=== PATIENT | male | born 2000 ===

== ENCOUNTER 2021-06-14 11:58 | Outpatient (REF) | payer OTHER, SELFPAY ==
[2021-06-14 12:32] LABS: COVID-19 Test Negative (Negative)
== END 2021-06-14 11:59 | disposition home or self-care (01) ==
LOC: HO.LAB 11:58
PROVIDERS: Visit Provider Internal Medicine
DX: Z20.822 Contact with and (suspected) exposure to COVID-19 (principal)
CPT/HCPCS: 87635; C9803

== ENCOUNTER 2021-08-03 16:08 | Emergency (ER) | payer OTHER, SELFPAY ==
--- NOTE | 2021-08-03 | ECG_ITS ---
Test Reason : CP Blood Pressure : / mmHG Vent. Rate : 097 BPM Atrial Rate : 097 BPM P-R Int : 130 ms QRS Dur : 080 ms QT Int : 326 ms P-R-T Axes : 074 093 017 degrees QTc Int : 414 ms Normal sinus rhythm Right atrial enlargement Rightward axis Borderline ECG No previous ECGs available Referred By: Generic ED Physician Electronically Signed By:GRANT NEIL MD
[2021-08-03 16:11] VITALS: BP 136/49; PULSE 100; RESP 18; TEMP 37.2; O2SAT 96; BMI 24.2
[2021-08-03 17:20] LABS: COVID-19 Test Negative (Negative)
[2021-08-03 17:21] LABS: IDNOW Serial# 55D5AD1C; Influenza A Positive (Negative); Influenza B2 Negative (Negative)
--- NOTE | 2021-08-03 17:49 | ED.URI ---
HPI - URI/Sore Throat General Chief Complaint: Upper Respiratory Symptoms Stated Complaint: body aches/chest pain/headaches Time Seen by Provider: 08/03/21 17:42 Source: patient Mode of arrival: ambulatory Limitations: no limitations History of Present Illness MD elicited complaint: fever, cough, sore throat, rhinorrhea and nasal congestion Onset (ago): day(s) (2) Consistency: constant and progressively worsening Severity: mild Description of mucous: clear and watery Able to tolerate fluids by mouth: Yes Exacerbating factors: swallowing and deep breaths Relieving factors: nothing Context: sick contacts and other(s) with similar symptoms (at work) Associated symptoms: fever, chills, myalgias, headache, rhinorrhea, nasal congestion, sore throat and cough Treatments prior to arrival: none Related Data Previous Rx's Medication Instructions Recorded acetaminophen 500 mg tablet 1,000 mg PO QID PRN #14 tab 08/03/21 (Tylenol Extra Strength) albuterol sulfate 90 mcg/actuation 1 inh INHALATION QID PRN #8.5 g 08/03/21 aerosol inhaler codeine 10 mg-guaifenesin 100 mg/5 5 ml PO Q6H PRN #120 ml 08/03/21 mL oral liquid (Guaifenesin AC) ibuprofen 800 mg tablet 800 mg PO Q8H PRN #14 tab 08/03/21 oseltamivir 75 mg capsule (Tamiflu) 75 mg PO BID 5 Days #10 cap 08/03/21 Allergies Allergy/AdvReac Type Severity Reaction Status Date / Time No Known Allergies Allergy Unverified 12/12/19 19:52 [No Known Allergies*] Review of Systems Review of Systems: Constitutional : + Fevers/ chills/fatigue/malaise, No Weight loss, No Night Sweats ENT/Mouth : + sore throat /nasal congestion/ rhinorrhea, No Hearing loss, No Ear Pain, No Sinus Pain, No Hoarseness, No Swallowing Difficulty Eyes: No Eye Pain, No Swelling, No Redness, No Foreign Body, No Discharge, No Vision Changes Cardiovascular : No Chest Pain, No SOB, No Dyspnea on Exertion, No Orthopnea, No Edema, No Palpitations Respiratory : + Cough c chest tightness, + Sputum, No Wheezing, No Smoke Exposure, No Dyspnea Gastrointestinal : No Nausea, No Vomiting, No Diarrhea, No Constipation, No abdominal Pain, No Hematochezia, No Melena Genitourinary : no irregular bleeding, No Dysuria, No Urinary Frequency, No Hematuria, No Urinary Incontinence, No Urgency, No Flank Pain, No Urinary Flow Changes, No Hesitancy Musculoskeletal : No joint pain, + Myalgias, No Joint Swelling Skin : No Skin Lesions, No rash Neuro : No Weakness, No Numbness, No Paresthesias, No Loss of Consciousness, No Dizziness, No Headache Psych : No Anxiety/Panic, No Depression, No SI/HI/AH/VH, No Social Issues, Heme/Lymph: No Bruising, No Bleeding,No Lymphadenopathy Endocrine : No Polyuria, No Polydipsia, No Temperature Intolerance Yes all other systems are reviewed and are negative [facility] Past Medical History Attestation statement: The following information was validated with the patient. Medical History No known health problems Surgical History No history of previous surgery Social History Social History Advance Directives: No Advance Directives Information Provided: No Physical Exam Vital Signs: Vital Signs: Last Vital Signs Temp 98.9 F 08/03/21 16:11 Pulse 100 08/03/21 16:11 Resp 18 08/03/21 16:11 BP 136/49 L 08/03/21 16:11 Pulse Ox 96 08/03/21 16:11 BMI result Body Mass Index 24.2 vital signs have been reviewed as normal and appeared to be correct. Blood pressure 136/49. Heart rate normal. Respiration rate normal. Temperature normal. Oxygen saturation normal. Appearance: Alert. Oriented X3. No acute distress. Head: Normal external exam. Normocephalic. Atraumatic. Eyes: PERRLA. EOMI. Conjunctiva and sclera normal. Eyelids normal. ENT: EAC normal. TM's Normal. Pharynx normal. Uvula midline. Moist mucous membranes. No lesions/ulcerations or masses noted on the tongue. Normal voice. No trismus noted. No drooling noted. No muffled voice noted. Neck: Normal inspection. Neck supple. FROM. No adenopathy. Thyroid Normal. No meningeal signs. No neck mass noted. CVS: Normal heart rate and rhythm. Heart sound normal. Pulses normal throughout. No murmurs/rales/gallops. Respiratory: No respiratory distress. Painless inspiration. Breath sounds normal. No wheezes/rales/rhonchi noted. Chest nontender. No accessory muscle usage noted or decreased air movement noted. No signs of trauma. Abdomen: Soft and nontender. Bowel sounds normal in all 4 quadrants. No distention noted. No organomegaly noted. No visible injury noted. Back: No CVA tenderness. Full range of motion noted. Nontender. No signs of trauma. Patient neuro intact bilaterally and distally on all 4 extremities. Patient's reflexes intact bilaterally and distally on all 4 extremities. No rashes/lesion/induration/fluctuance or signs of infection noted. Skin: Skin warm and dry. Normal skin color. Normal skin turgor. No rashes/lesions/lacerations noted. Extremities: No lower extremity edema. No calf tenderness is noted. Extremities exhibit normal range of motion and nontender. Neuro: Oriented X 3. No motor deficit. No sensory deficit. Reflexes normal. Normal steady gait. No focal neuro deficits noted. CN's II-XII intact bilaterally? Vascular: + radial pulses/+ 2 distal pedal pulses/+2 dorsalis pedis b/l. Normal cap refill. No cyanosis noted to upper extremity nails and lower extremity toes nails. Course Course Course Narrative: 21-year-old male presenting to the ED with complaints of subjective fevers, chills, fatigue, malaise, body aches, sore throat, nasal congestion / rhinorrhea with intermittent productive versus dry cough since yesterday worse today. Reports that he is vaccinated to COVID although not vaccinated to the flu. He reports that his bosses son from [employer] recently came out positive for COVID therefore he was concerned for COVID. He denies any other sick contacts that he is aware of. He is positive for the flu. Otherwise on exam he is alert and oriented x3. Not in any acute distress. Neck is soft nontender and supple with full range of motion. Lungs clear to auscultation. Abdomen is soft and nontender. No lower extremity edema or calf tenderness noted. EKG is normal sinus rhythm no acute ischemic change are noted. no imaging indicated at this time. Will DC home with Tamiflu and symptomatic treatment instructions return if any new or worsening symptoms to self isolate and follow up with primary care provider. Patient understands agrees with this plan. MDM - URI/Sore Throat Medical Records Attestation: I reviewed the patient's medical records. Lab Data Attestation: I reviewed the patient's lab results. Labs: Lab Results 08/03/21 08/03/21 08/03/21 Range/Units 16:17 16:17 17:51 COVID-19 (GLENDA) Negative (Negative) COVID-19 Clin Com See Note Influenza Type A (JALIL) Positive A (Negative) Influenza Type B (JALIL) Negative (Negative) Influenza A & B Note See Note S. pyogenes GrpA JALIL Negative (Negative) Discharge Plan Discharge Clinical Impression: Influenza A Patient Disposition: Home, Self-Care Instructions: Influenza (ED), Flu Shot (Vaccine) for Adults (ED), Droplet Precautions (ED) Prescriptions: New oseltamivir [Tamiflu] 75 mg capsule 75 mg PO BID 5 Days Qty: 10 0RF albuterol sulfate 90 mcg/actuation HFA aerosol inhaler 1 inh inhalation QID PRN (Reason: shortness of breath or wheezing) Qty: 8.5 0RF codeine-guaifenesin [Guaifenesin AC] 10-100 mg/5 mL liquid 5 ml PO Q6H PRN (Reason: cold symptoms) Qty: 120 0RF ibuprofen 800 mg tablet 800 mg PO Q8H PRN (Reason: pain) Qty: 14 0RF acetaminophen [Tylenol Extra Strength] 500 mg tablet 1,000 mg PO QID PRN (Reason: fever or pain) Qty: 14 0RF Referrals: Physician,Unknown J [Primary Care Provider] - 1 week (your pcp) Stand Alone Forms: Work/School Release Print Language: Andorran
[2021-08-03 18:07] LABS: Strep A Nucleic Acid Negative (Negative)
== END 2021-08-03 18:50 | disposition home or self-care (01) ==
LOC: HO.ED 18:11
PROVIDERS: Physician Assistant Medical; Emergency Provider Emergency Medicine
DX: J10.1 Influenza due to other identified influenza virus with other respiratory manifestations (principal); R07.89 Other chest pain; R50.9 Fever, unspecified; M79.10 Myalgia, unspecified site; R51.9 Headache, unspecified; J34.89 Other specified disorders of nose and nasal sinuses; R05.9 Cough, unspecified; Z20.822 Contact with and (suspected) exposure to COVID-19; Z79.899 Other long term (current) drug therapy
CPT/HCPCS: 36415; 87502; 87635; 87651; 93005; 99283; 99284

== ENCOUNTER 2021-08-12 02:33 | Emergency (ER) | payer OTHER, SELFPAY ==
--- NOTE | ~2021-08-12 | XR_ITS ---
EXAMINATION: XR CHEST CLINICAL INFORMATION: Cough COMPARISON: None TECHNIQUE: Frontal view of the chest was obtained. FINDINGS: The lungs are well expanded. There is no focal consolidation, edema, or effusion. No pneumothorax. The cardiomediastinal silhouette is within normal limits. No acute osseous abnormality. XR/XR chest 1V IMPRESSION: Clear lungs.
[2021-08-12 02:53] VITALS: BP 125/52; PULSE 74; RESP 16; TEMP 36.8; O2SAT 95; BMI 28.3
[2021-08-12 03:15] LABS: COVID-19 Test Negative (Negative); IDNOW Serial# 16C4AD1C; Influenza A Negative (Negative); Influenza B2 Negative (Negative)
--- NOTE | 2021-08-12 07:03 | ED_ITS ---
HPI - URI/Sore Throat General Chief Complaint: Upper Respiratory Symptoms Stated Complaint: Cough Time Seen by Provider: 08/12/21 07:02 Source: patient and spanish interpreter Mode of arrival: ambulatory Limitations: no limitations History of Present Illness HPI Narrative: dx with flu A on 08/03 MD elicited complaint: cough and other Pertinent past history: other (flu A on 08/03 ) Onset (ago): day(s) (10) Consistency: intermittent Severity: moderate Description of mucous: clear Able to tolerate fluids by mouth: Yes Exacerbating factors: exertion and deep breaths Relieving factors: nothing Context: other(s) with similar symptoms Associated symptoms: chills, nasal congestion and cough Treatments prior to arrival: none Related Data Previous Rx's Medication Instructions Recorded acetaminophen 500 mg tablet 1,000 mg PO QID PRN #14 tab 08/03/21 (Tylenol Extra Strength) albuterol sulfate 90 mcg/actuation 1 inh INHALATION QID PRN #8.5 g 08/03/21 aerosol inhaler codeine 10 mg-guaifenesin 100 mg/5 5 ml PO Q6H PRN #120 ml 08/03/21 mL oral liquid (Guaifenesin AC) ibuprofen 800 mg tablet 800 mg PO Q8H PRN #14 tab 08/03/21 oseltamivir 75 mg capsule (Tamiflu) 75 mg PO BID 5 Days #10 cap 08/03/21 azithromycin 250 mg tablet 250 mg PO DAILY 4 Days #4 tab 08/12/21 benzonatate 200 mg capsule 200 mg PO TID PRN #14 cap 08/12/21 prednisone 20 mg tablet 40 mg PO DAILY 4 Days #8 tab 08/12/21 Allergies Allergy/AdvReac Type Severity Reaction Status Date / Time No Known Allergies Allergy Verified 08/12/21 02:56 [No Known Allergies*] Review of Systems Review of Systems: Constitutional : No Fever, No Chills ENT/Mouth : No Hoarseness, pos sore throat, pos Rhinorrhea Eyes: No Redness, No Discharge, No Vision Changes Cardiovascular : No Chest Pain, positive SOB, no Dyspnea on Exertion, No Edema Respiratory : positive Cough, No Sputum, no Wheezing, Gastrointestinal : No Nausea, No Vomiting, No Diarrhea, No abdominal Pain Genitourinary : No Dysuria, No Hematuria Musculoskeletal : No joint pain, No Myalgias Skin : No rash Neuro : No Weakness, No Numbness, No Headache Psych : No anxiety, depression Heme/Lymph: No Bruising, No Bleeding Endocrine : No Polyuria, No Polydipsia All other systems reviewed and are negative [facility] Past Medical History Attestation statement: The following information was validated with the patient. Medical History No known health problems Surgical History No history of previous surgery Social History Social History (Updated 08/12/21 @ 07:29 by Nicole Schmidt DO) Patient Tobacco Use Status: Never used Tobacco Advance Directives: No Physical Exam Vital Signs: Vital Signs: Last Vital Signs Temp 98.3 F 08/12/21 02:53 Pulse 74 08/12/21 02:53 Resp 16 08/12/21 02:53 BP 125/52 L 08/12/21 02:53 Pulse Ox 95 08/12/21 02:53 BMI result Body Mass Index 28.3 Appearance: Alert. Oriented X3. No acute distress. Eyes: Pupils equal, round and reactive to light. ENT: Pharynx mild generalized erythema Neck: Normal inspection. Neck supple. CVS: Normal heart rate and rhythm. Pulses normal. Respiratory: No respiratory distress. Breath sounds normal. Dry bronchospastic cough Abdomen: Soft and nontender. Skin: Skin warm and dry. Normal skin color. Normal skin turgor. Extremities: No lower extremity edema. No calf ttp Neuro: Oriented X 3. No motor deficit. No sensory deficit. MDM - URI/Sore Throat MDM Narrative Medical decision making narrative: 21 yo male with no sig PMH here with flu A on 08/03 now with persistent dry cough that keeps him up. His job sent him in due to coughing at work. He has had bronchitis in the past. At this time viral swabs and CXR from triage are negative. Will give INH, steroids, anti tussive and zpak for bronchitis. Stable for DC. Normal O2 sats Lab Data Labs: Lab Results 08/12/21 08/12/21 Range/Units 02:53 02:53 COVID-19 (GLENDA) Negative (Negative) COVID-19 Clin Com See Note Influenza Type A (JALIL) Negative (Negative) Influenza Type B (JALIL) Negative (Negative) Influenza A & B Note See Note Discharge Plan Discharge Clinical Impression: Bronchitis Patient Disposition: Home, Self-Care Instructions: Acute Bronchitis (ED) Additional Instructions: return to ED for any worsening symptoms or concerns use el inhalador 2 inhalaciones cada 4 horas seg?n sea necesario para la tos y las sibilancias inicio prednisona y azitromicina el 20 de Prescriptions: New prednisone 20 mg tablet 40 mg PO DAILY 4 Days Qty: 8 0RF azithromycin 250 mg tablet 250 mg PO DAILY 4 Days Qty: 4 0RF Rx Instructions: start on day 2 of therapy benzonatate 200 mg capsule 200 mg PO TID PRN (Reason: cough) Qty: 14 0RF No Action oseltamivir [Tamiflu] 75 mg capsule 75 mg PO BID 5 Days Qty: 10 0RF albuterol sulfate 90 mcg/actuation HFA aerosol inhaler 1 inh inhalation QID PRN (Reason: shortness of breath or wheezing) Qty: 8.5 0RF codeine-guaifenesin [Guaifenesin AC] 10-100 mg/5 mL liquid 5 ml PO Q6H PRN (Reason: cold symptoms) Qty: 120 0RF ibuprofen 800 mg tablet 800 mg PO Q8H PRN (Reason: pain) Qty: 14 0RF acetaminophen [Tylenol Extra Strength] 500 mg tablet 1,000 mg PO QID PRN (Reason: fever or pain) Qty: 14 0RF Stand Alone Forms: Work/School Release Print Language: Cook Islander
[2021-08-12] MEDS: Benzonatate 100 MG CAPSULE 200 MG PO (07:32)
[2021-08-12] MEDS: predniSONE 20 MG TABLET 40 MG PO (07:32)
[2021-08-12] MEDS: Azithromycin 500 MG TABLET PO (07:33)
[2021-08-12] MEDS: Albuterol Sulfate 90 MCG 8 GM INHALER 4 PUFF INHALE (07:34)
[2021-08-12 07:36] VITALS: PULSE 105; RESP 16; O2SAT 99
== END 2021-08-12 07:59 | disposition home or self-care (01) ==
PROVIDERS: Emergency Provider Emergency Medicine
DX: J40 Bronchitis, not specified as acute or chronic (principal); R05.9 Cough, unspecified; R68.83 Chills (without fever); Z79.899 Other long term (current) drug therapy; Z20.822 Contact with and (suspected) exposure to COVID-19
CPT/HCPCS: 71045; 87502; 87635; 94640; 99284

== ENCOUNTER 2022-11-16 21:40 | Emergency (ER) | payer OTHER, SELFPAY ==
[2022-11-16 21:50] VITALS: BP 135/68; PULSE 79; RESP 20; TEMP 37.2; O2SAT 98; BMI 29.9
[2022-11-17] VITALS: BP 130/70; PULSE 78; RESP 16; TEMP 37.2; O2SAT 98
--- NOTE | 2022-11-17 00:50 | ED_ITS ---
HPI - Skin/Abscess/Foreign Bdy General Chief complaint: Skin/Abscess/Foreign Body Stated complaint: abscess inner right leg? Time Seen by Provider: 11/17/22 00:37 Source: patient Mode of arrival: ambulatory Limitations: no limitations History of Present Illness HPI narrative: Pain and swelling to right medial thigh Drained today Pain moderate to severe Worse with palpation and movement. Pain does not raidiate No fevers. No injury or trauma Related Data Previous Rx's Medication Instructions Recorded acetaminophen 500 mg tablet 1,000 mg PO QID PRN fever or pain 08/03/21 (Tylenol Extra Strength) #14 tabs albuterol sulfate 90 mcg/actuation 1 inh inhalation QID PRN shortness 08/03/21 aerosol inhaler of breath or wheezing #8.5 grams codeine 10 mg-guaifenesin 100 mg/5 5 ml PO Q6H PRN cold symptoms #120 08/03/21 mL oral liquid (Guaifenesin AC) mL ibuprofen 800 mg tablet 800 mg PO Q8H PRN pain #14 tabs 08/03/21 oseltamivir 75 mg capsule (Tamiflu) 75 mg PO BID 5 days #10 caps 08/03/21 azithromycin 250 mg tablet 250 mg PO DAILY 4 days #4 tabs 08/12/21 benzonatate 200 mg capsule 200 mg PO TID PRN cough #14 caps 08/12/21 prednisone 20 mg tablet 40 mg PO DAILY 4 days #8 tabs 08/12/21 Allergies Allergy/AdvReac Type Severity Reaction Status Date / Time No Known Allergies Allergy Verified 08/12/21 02:56 [No Known Allergies*] Review of Systems Review of Systems: CONSTITUTIONAL: Denies weight loss, fever and chills. HEENT: Denies changes in vision and hearing. RESPIRATORY: Denies SOB and cough. CV: Denies palpitations no CP. GI: Denies abdominal pain, nausea, vomiting and diarrhea. : Denies dysuria and urinary frequency. MSK: Denies myalgia and joint pain. SKIN: Denies rash and pruritus. NEUROLOGICAL: Denies headache and syncope. PSYCHIATRIC: Denies recent changes in mood. Denies anxiety and depression. All other ROS are negative unless in HPI PMFSH Past Medical History Medical History No known health problems Surgical History No history of previous surgery Social History Social History Patient Tobacco Use Status: Never used Tobacco Advance Directives: No Advance Directives Information Provided: Yes Physical Exam Vital Signs: Vital Signs: Last Vital Signs Temp 99.0 F 11/17/22 00:00 Pulse 78 11/17/22 00:00 Resp 16 11/17/22 00:00 BP 130/70 11/17/22 00:00 Pulse Ox 98 11/17/22 00:00 O2 Del Method Room Air 11/17/22 00:00 BMI result Body Mass Index 29.9 GEN: Well developed, no acute distress, alert, oriented HEENT: Normocephalic, atraumatic, normal external ears, nose appears normal Eyes: Normal to appearance Neck: Supple, no lymphadenopathy Respiratory: Talks in complete sentences, no respiratory distress Extremities: No clubbing cyanosis or edema Neurologic: No focal neurologic deficits, cranial nerves 2-12 intact, gait normal Skin: No rash , small open abscess right medial thigh, no fluctuance, unable to express purulence. Medical Decision Making Medical Decision Making [facility] Narrative: Abscess to medial thigh, open and drained DD: cellulitis, abscess, folliculitis Plan: ABX, warm compresses, f/u as needed Differential Diagnosis Differential Diagnoses: The differential diagnosis associated with the presentation includes (see above) Prescription Management I considered prescription management with: Pain Medication and Antibiotic Discharge Plan Discharge Clinical Impression: Abscess of skin or subcutaneous tissue, Cellulitis Patient Disposition: Home, Self-Care Instructions: Abscess (ED) Prescriptions: No Action prednisone 20 mg tablet 40 mg PO DAILY 4 Days Qty: 8 0RF azithromycin 250 mg tablet 250 mg PO DAILY 4 Days Qty: 4 0RF Rx Instructions: start on day 2 of therapy benzonatate 200 mg capsule 200 mg PO TID PRN (Reason: cough) Qty: 14 0RF oseltamivir [Tamiflu] 75 mg capsule 75 mg PO BID 5 Days Qty: 10 0RF albuterol sulfate 90 mcg/actuation HFA aerosol inhaler 1 inh inhalation QID PRN (Reason: shortness of breath or wheezing) Qty: 8.5 0 RF codeine-guaifenesin [Guaifenesin AC] 10-100 mg/5 mL liquid 5 ml PO Q6H PRN (Reason: cold symptoms) Qty: 120 0RF ibuprofen 800 mg tablet 800 mg PO Q8H PRN (Reason: pain) Qty: 14 0RF acetaminophen [Tylenol Extra Strength] 500 mg tablet 1,000 mg PO QID PRN (Reason: fever or pain) Qty: 14 0RF Referrals: [facility] [Provider Group] (as needed) Print Language: Citizen [place]
[2022-11-17 05:59] VITALS: BP 114/78; PULSE 66; RESP 18; TEMP 36.6; O2SAT 100
== END 2022-11-17 06:06 | disposition home or self-care (01) ==
PROVIDERS: Emergency Provider Emergency Medicine
DX: L03.115 Cellulitis of right lower limb (principal); Z79.899 Other long term (current) drug therapy
CPT/HCPCS: 99282; 99283

== ENCOUNTER 2023-01-10 08:13 | Emergency (ER) | payer OTHER, SELFPAY ==
[2023-01-10 08:21] VITALS: BP 115/54; PULSE 73; RESP 16; TEMP 36.4; O2SAT 99; BMI 31.1
[2023-01-10 08:51] LABS: IDNOW Serial# 08D9AD1C; Strep A Nucleic Acid Negative (Negative)
--- NOTE | 2023-01-10 09:09 | ED_ITS ---
HPI - General Adult General Chief complaint: General Medical Stated complaint: Cough/Headache/Sore throat Time Seen by Provider: 01/10/23 09:06 Source: patient Mode of arrival: ambulatory Limitations: no limitations History of Present Illness HPI narrative: 22 yo male presents to the ER for evaluation of 5 days of cough, chills, headache, and sore throat. He has had known exposure to RSV; his partner's children had it last week and were sick for 7 days. He states today he also started having vomiting x1 and diarrhea x1. He was sent home from work. His stomach is queasy but he denies pain. No chest pain or difficulty breathing. MD complaint: URI symtoms Onset (ago): day(s) (5) Severity: moderate Quality: aching Pain Consistency: constant Relieving factors: medication Exacerbating factors: none Associated symptoms: cough, headaches, loss of appetite, malaise, nausea/vomiting and weakness Treatments prior to arrival: none Related Data Previous Rx's Medication Instructions Recorded acetaminophen 500 mg tablet 1,000 mg (2 x 500 mg) PO QID PRN 08/03/21 (Tylenol Extra Strength) fever or pain #14 tabs albuterol sulfate 90 mcg/actuation 1 inh inhalation QID PRN shortness 08/03/21 aerosol inhaler of breath or wheezing #8.5 grams codeine 10 mg-guaifenesin 100 mg/5 5 ml PO Q6H PRN cold symptoms #120 08/03/21 mL oral liquid (Guaifenesin AC) mL ibuprofen 800 mg tablet 800 mg PO Q8H PRN pain #14 tabs 08/03/21 oseltamivir 75 mg capsule (Tamiflu) 75 mg PO BID 5 days #10 caps 08/03/21 azithromycin 250 mg tablet 250 mg PO DAILY 4 days #4 tabs 08/12/21 benzonatate 200 mg capsule 200 mg PO TID PRN cough #14 caps 08/12/21 prednisone 20 mg tablet 40 mg (2 x 20 mg) PO DAILY 4 days 08/12/21 #8 tabs Allergies Allergy/AdvReac Type Severity Reaction Status Date / Time No Known Allergies Allergy Verified 08/12/21 02:56 [No Known Allergies*] Review of Systems Review of Systems: Yes all other systems are reviewed and are negative PMFSH Past Medical History Medical History No known health problems Surgical History No history of previous surgery Social History Social History Patient Tobacco Use Status: Never used Tobacco Advance Directives: No Advance Directives Information Provided: No Physical Exam ED Vital Signs: Vital Signs - 24 hr 01/10/23 08:21 Temperature 97.6 F Pulse Rate 73 Respiratory Rate 16 Blood Pressure 115/54 L Pulse Oximetry 99 Oxygen Delivery Method Room Air BMI result Body Mass Index 31.1 Appearance: Alert. Oriented X3. No acute distress. Head: normocephalic, atraumatic. Eyes: Pupils equal, round and reactive to light. ENT: Pharynx w/ moist mucus membranes. + tonsillomegaly but no exudate or erythema. +nasal congestion. Neck: Normal inspection. Neck supple. CVS: Normal heart rate and rhythm. Pulses normal. Respiratory: No respiratory distress. Breath sounds normal. Abdomen: Soft and nontender. +BS x4 Skin: Skin warm and dry. Normal skin color. Normal skin turgor. No rashes. Extremities: No lower extremity edema. No joint swelling. Neuro/psych: Oriented X 3. grossly normal, nonfocal. Normal speech and cognition. Medical Decision Making Medical Decision Making [facility] Narrative: 22 yo male presenting with URI symptoms along w/ new N/V/D today. Known RSV exposure last week. VSS and exam is unremarkable. He was found to be RSV positive today. Discussed diagnosis and supportive care along w/ return precautions. Stable for d/c home. Differential Diagnosis Differential Diagnoses: The differential diagnosis associated with the presentat ion includes strep, covid, flu, rsv, other viral syndrome, bronchitis, pneumonia, no evidence of peritonsillar abcsess or retropharyngeal abscess Lab Data [facility] Lab Attestation statement: I reviewed the patient's lab results. Labs: Lab Results 01/10/23 Range/Units 08:36 Influenza Type A (PCR) NEGATIVE (Negative) Influenza Type B (PCR) NEGATIVE (Negative) RSV RNA Qual (PCR) POSITIVE A (Negative) SARS-CoV-2 RNA (RT-PCR) NEGATIVE (Negative) S. pyogenes GrpA JALIL Negative (Negative) Independent Historian Clinical information obtained from an independent historian. History obtained fr om or confirmed by: Spouse Tests considered The following testing was considered but not selected: CXR considered due to cough but lungs clear, nonproductive Prescription Management I considered prescription management with: Antibiotic Chronic Conditions Patient?s care impacted by: Other (mild intermittent asthma) Critical Care Time Critical Care Time Critical Care Time: No Discharge Plan Discharge Clinical Impression: Respiratory syncytial virus (RSV) Patient Disposition: Home, Self-Care Instructions: Respiratory Syncytial Virus (ED) Additional Instructions: You were found to be RSV POSITIVE today. Your exam and oxygen levels were normal. Rest. Drink plenty of fluids. Do not go out in public while you are not feeling well. Take over the counter cold/flu medications as needed for your symptoms. Take Tylenol and/or Motrin as needed for fevers and body aches. Follow up with your doctor as needed. If you develop new or worsening symptoms call 911 or come back to the ER for further evaluation. Se encontr? que usted es RSV POSITIVO hoy. Smith examen y niveles de ox?hernandez fueron normales. Descansar. Beber mucho l?quido. No salgas en p?blico mientras no te sientas jorge luis. Chance medicamentos de venta elliot para el resfriado o la gripe seg?n sea necesario para britney s?ntomas. Chance Tylenol y/o Motrin seg?n sea necesario para la fiebre y los tonio corporales. Louise un seguimiento con smith m?dico seg?n sea necesario. Si desarrolla s?ntomas nuevos o que empeoran, llame al 911 o regrese a la kemi de emergencias para mohini evaluaci?n adicional. Prescriptions: No Action prednisone 20 mg tablet 40 mg PO DAILY 4 Days Qty: 8 0RF azithromycin 250 mg tablet 250 mg PO DAILY 4 Days Qty: 4 0RF Rx Instructions: start on day 2 of therapy benzonatate 200 mg capsule 200 mg PO TID PRN (Reason: cough) Qty: 14 0RF oseltamivir [Tamiflu] 75 mg capsule 75 mg PO BID 5 Days Qty: 10 0RF albuterol sulfate 90 mcg/actuation HFA aerosol inhaler 1 inh inhalation QID PRN (Reason: shortness of breath or wheezing) Qty: 8.5 0RF codeine-guaifenesin [Guaifenesin AC] 10-100 mg/5 mL liquid 5 ml PO Q6H PRN (Reason: cold symptoms) Qty: 120 0RF ibuprofen 800 mg tablet 800 mg PO Q8H PRN (Reason: pain) Qty: 14 0RF acetaminophen [Tylenol Extra Strength] 500 mg tablet 1,000 mg PO QID PRN (Reason: fever or pain) Qty: 14 0RF Stand Alone Forms: Work/School Release Interventions: ED Discharge Assessment Last Done: 01/10/23 09:32 Print Language: Lithuanian
[2023-01-10 09:21] LABS: Influenza A PCR NEGATIVE (Negative); Influenza B PCR NEGATIVE (Negative); Resp Syncy Virus RNA Qual PCR POSITIVE (Negative); SARS COV2 PCR INHOUSE NEGATIVE (Negative)
== END 2023-01-10 09:33 | disposition home or self-care (01) ==
PROVIDERS: Emergency Provider Emergency Medicine Emergency Medical Services
DX: R05.9 Cough, unspecified (principal); B97.4 Respiratory syncytial virus as the cause of diseases classified elsewhere; J02.9 Acute pharyngitis, unspecified; Z20.822 Contact with and (suspected) exposure to COVID-19; Z20.828 Contact with and (suspected) exposure to other viral communicable diseases
CPT/HCPCS: 0241U; 87651; 99282; 99283

== ENCOUNTER 2023-01-12 02:34 | Emergency (ER) | payer OTHER, SELFPAY ==
[2023-01-12 02:39] VITALS: BP 113/80; PULSE 68; RESP 16; TEMP 36.9; O2SAT 98; BMI 32.2
[2023-01-12 03:39] VITALS: BP 124/75; PULSE 79; RESP 16; TEMP 36.5; O2SAT 100
--- NOTE | 2023-01-12 04:17 | ED.EAR ---
HPI - Ear Problem General Chief complaint: Ear Problems Stated complaint: +RSV, ear pain, neck pain Time Seen by Provider: 01/12/23 04:15 Source: patient Mode of arrival: ambulatory Limitations: no limitations History of Present Illness HPI Narrative: Patient diagnosed RSV for upper respiratory infection yesterday comes back with right ear pain that started earlier today pain is throbbing no ear discharge no fever no chills Related Data Previous Rx's Medication Instructions Recorded acetaminophen 500 mg tablet 1,000 mg (2 x 500 mg) PO QID PRN 08/03/21 (Tylenol Extra Strength) fever or pain #14 tabs albuterol sulfate 90 mcg/actuation 1 inh inhalation QID PRN shortness 08/03/21 aerosol inhaler of breath or wheezing #8.5 grams codeine 10 mg-guaifenesin 100 mg/5 5 ml PO Q6H PRN cold symptoms #120 08/03/21 mL oral liquid (Guaifenesin AC) mL ibuprofen 800 mg tablet 800 mg PO Q8H PRN pain #14 tabs 08/03/21 oseltamivir 75 mg capsule (Tamiflu) 75 mg PO BID 5 days #10 caps 08/03/21 azithromycin 250 mg tablet 250 mg PO DAILY 4 days #4 tabs 08/12/21 benzonatate 200 mg capsule 200 mg PO TID PRN cough #14 caps 08/12/21 prednisone 20 mg tablet 40 mg (2 x 20 mg) PO DAILY 4 days 08/12/21 #8 tabs amoxicillin 875 mg-potassium 1 tab PO BID #20 tabs 01/12/23 clavulanate 125 mg tablet ibuprofen 600 mg tablet 600 mg PO Q6H PRN fever or pain 01/12/23 #30 tabs Allergies Allergy/AdvReac Type Severity Reaction Status Date / Time No Known Allergies Allergy Verified 08/12/21 02:56 [No Known Allergies*] Review of Systems Review of Systems: Yes all other systems are reviewed and are negative PMFSH Past Medical History Medical History No known health problems Surgical History No history of previous surgery Social History Social History Patient Tobacco Use Status: Never used Tobacco Advance Directives: No Advance Directives Information Provided: Yes Physical Exam Vital Signs: Vital Signs: Last Vital Signs Temp 97.7 F 01/12/23 03:39 Pulse 79 01/12/23 03:39 Resp 16 01/12/23 03:39 BP 124/75 01/12/23 03:39 Pulse Ox 100 01/12/23 03:39 O2 Del Method Room Air 01/12/23 03:39 BMI result Body Mass Index 32.2 HEENT: Ears: hearing grossly normal bilaterally, external ears normal, TM normal on the left, EAC's normal, mastoids normal and TM abnormal (Right tympanic membrane) dull, erythematous and with fluid behind the TM Face and sinus: Yes normal facial exam Mouth: Normal oral and palatal mucosa present Teeth and gingiva: dentition normal Throat: Yes posterior oropharynx normal Resp: Effort & Inspection: normal respiratory effort Auscultation: clear to auscultation bilaterally Medical Decision Making Medical Decision Making MDM Narrative: Patient with right otitis media will discharge patient home on Augmentin Discharge Plan Discharge Clinical Impression: Otitis media Patient Disposition: Home, Self-Care Instructions: Ear Infection (ED) Additional Instructions: Take antibiotic and pain medication as prescribed [place] antibi?ticos y analg?sicos seg?n lo recetado. Prescriptions: New ibuprofen 600 mg tablet 600 mg PO Q6H PRN (Reason: fever or pain) Qty: 30 0RF amoxicillin-pot clavulanate 875-125 mg tablet 1 tab PO BID Qty: 20 0RF No Action prednisone 20 mg tablet 40 mg PO DAILY 4 Days Qty: 8 0RF azithromycin 250 mg tablet 250 mg PO DAILY 4 Days Qty: 4 0RF Rx Instructions: start on day 2 of therapy benzonatate 200 mg capsule 200 mg PO TID PRN (Reason: cough) Qty: 14 0RF oseltamivir [Tamiflu] 75 mg capsule 75 mg PO BID 5 Days Qty: 10 0RF albuterol sulfate 90 mcg/actuation HFA aerosol inhaler 1 inh inhalation QID PRN (Reason: shortness of breath or wheezing) Qty: 8.5 0RF codeine-guaifenesin [Guaifenesin AC] 10-100 mg/5 mL liquid 5 ml PO Q6H PRN (Reason: cold symptoms) Qty: 120 0RF ibuprofen 800 mg tablet 800 mg PO Q8H PRN (Reason: pain) Qty: 14 0RF acetaminophen [Tylenol Extra Strength] 500 mg tablet 1,000 mg PO QID PRN (Reason: fever or pain) Qty: 14 0RF Print Language: Persian
[2023-01-12] MEDS: Amoxicillin/Potassium Clav 875 MG TABLET PO (04:46)
[2023-01-12] MEDS: oxyCODONE HCl Immed Release 5 MG TABLET 10 MG PO (04:46)
== END 2023-01-12 04:54 | disposition home or self-care (01) ==
PROVIDERS: Emergency Provider Internal Medicine
DX: H66.91 Otitis media, unspecified, right ear (principal)
CPT/HCPCS: 99283; 99284

== ENCOUNTER 2023-11-17 20:03 | Emergency (ER) | payer MEDICAID, SELFPAY ==
--- NOTE | ~2023-11-17 | XR_ITS ---
EXAMINATION: XR KNEE, RIGHT CLINICAL INFORMATION: Knee pain COMPARISON: None available. TECHNIQUE: Four views of the right knee. FINDINGS: No fracture or joint effusion. Alignment is anatomic. Joint spaces are maintained. No abnormal soft tissue calcification. XR/XR knee RT 3V IMPRESSION: Normal right knee. Electronically signed by: Genaro Ham DO 11/17/2023 10:31 PM EDT
[2023-11-17 20:13] VITALS: BP 112/61; PULSE 96; RESP 18; TEMP 36.7; O2SAT 99; BMI 34.0
[2023-11-17 23:58] VITALS: BP 115/51; PULSE 86; RESP 17; TEMP 36.6; O2SAT 100
--- NOTE | 2023-11-18 00:09 | ED_ITS ---
HPI - Extremity Problem General Chief complaint: Extremity Problem Stated complaint: leg inj from basketball Time Seen by Provider: 11/18/23 00:09 Source: patient Mode of arrival: ambulatory Limitations: no limitations History of Present Illness ED Provider: katerine OTTO Narrative: Patient was playing basketball took a step and noticed sharp pain in the right hamstring area no history of prior injury patient ambulatory as such no weakness Related Data Previous Rx's ?Medication ?Instructions ?Recorded acetaminophen 500 mg tablet 1,000 mg (2 x 500 mg) PO QID PRN 08/03/21 (Tylenol Extra Strength) fever or pain #14 tabs albuterol sulfate 90 mcg/actuation 1 inh inhalation QID PRN shortness 08/03/21 aerosol inhaler of breath or wheezing #8.5 grams codeine 10 mg-guaifenesin 100 mg/5 5 ml PO Q6H PRN cold symptoms #120 08/03/21 mL oral liquid (Guaifenesin AC) mL ibuprofen 800 mg tablet 800 mg PO Q8H PRN pain #14 tabs 08/03/21 oseltamivir 75 mg capsule (Tamiflu) 75 mg PO BID 5 days #10 caps 08/03/21 azithromycin 250 mg tablet 250 mg PO DAILY 4 days #4 tabs 08/12/21 benzonatate 200 mg capsule 200 mg PO TID PRN cough #14 caps 08/12/21 prednisone 20 mg tablet 40 mg (2 x 20 mg) PO DAILY 4 days 08/12/21 #8 tabs amoxicillin 875 mg-potassium 1 tab PO BID #20 tabs 01/12/23 clavulanate 125 mg tablet ibuprofen 600 mg tablet 600 mg PO Q6H PRN fever or pain 01/12/23 #30 tabs ibuprofen 600 mg tablet 600 mg PO Q6H PRN fever or pain 11/18/23 #30 tabs Allergies Allergy/AdvReac Type Severity Reaction Status Date / Time No Known Allergies Allergy Verified 11/17/23 20:15 [No Known Allergies*] Review of Systems Review of Systems: Yes all other systems are reviewed and are negative PMFSH Past Medical History Medical History No known health problems Surgical History No history of previous surgery Social History Social History Unable to assess alcohol history related to: Unknown Patient Tobacco Use Status: Never used Tobacco Smoked in Last 30 Days: No Use of substances other than those prescribed or required for medical reasons: No Advance Directives: No Advance Directives Information Provided: Yes Do you have a plan to hurt others: No Plan Physical Exam Vital Signs: Vital Signs: Last Vital Signs Temp 97.8 F 11/17/23 23:58 Pulse 86 11/17/23 23:58 Resp 17 11/17/23 23:58 BP 115/51 L 11/17/23 23:58 Pulse Ox 100 11/17/23 23:58 O2 Del Method Room Air 11/17/23 23:58 BMI result Body Mass Index 34.0 Appearance: Alert. Oriented X3. No acute distress. CVS: Normal heart rate and rhythm. Pulses normal. Respiratory: No respiratory distress. Equal air entry bilateral, Abdomen: Soft and nontender. Bowel sounds are present, Skin: Skin warm and dry. Normal skin color. Normal skin turgor. Extremities: No lower extremity edema. No calf tenderness tenderness in the hamstring area without any muscle gap noticed no bruising painful flexion of the right leg but good strength neurovascular intact Neuro: Oriented X 3. No motor deficit. No sensory deficit. Medications Administered Discontinued Medications Generic Name Dose Route Start Last Admin Trade Name Freq PRN Reason Stop Dose Admin Oxycodone HCl 10 mg 11/18/23 00:14 11/18/23 00:21 Oxycodone Hcl Immed Release 5 Mg Tablet PO 11/18/23 00:15 10 mg ONCE ONE Administration Medical Decision Making Medical Decision Making [facility] Narrative: Patient clinically with right hamstring strain with strength maintained able to ambulate patient advised to follow with Orthopedics Santana wrap was applied for support Discharge Plan Discharge Clinical Impression: Strain of right hamstring muscle Patient Disposition: Home, Self-Care Instructions: Hamstring Injury (ED), R.I.C.E. Treatment (ED), Hamstring Exercises (ED) Additional Instructions: Wear the Santana wrap as provided for right hamstring strain Rest and apply ice Hamstring exercises as advised Follow with Orthopedics for further evaluation Prescriptions: New ibuprofen 600 mg tablet 600 mg PO Q6H PRN (Reason: fever or pain) Qty: 30 0RF No Action prednisone 20 mg tablet 40 mg PO DAILY 4 Days Qty: 8 0RF azithromycin 250 mg tablet 250 mg PO DAILY 4 Days Qty: 4 0RF Rx Instructions: start on day 2 of therapy benzonatate 200 mg capsule 200 mg PO TID PRN (Reason: cough) Qty: 14 0RF oseltamivir [Tamiflu] 75 mg capsule 75 mg PO BID 5 Days Qty: 10 0RF albuterol sulfate 90 mcg/actuation HFA aerosol inhaler 1 inh inhalation QID PRN (Reason: shortness of breath or wheezing) Qty: 8.5 0RF codeine-guaifenesin [Guaifenesin AC] 10-100 mg/5 mL liquid 5 ml PO Q6H PRN (Reason: cold symptoms) Qty: 120 0RF ibuprofen 800 mg tablet 800 mg PO Q8H PRN (Reason: pain) Qty: 14 0RF acetaminophen [Tylenol Extra Strength] 500 mg tablet 1,000 mg PO QID PRN (Reason: fever or pain) Qty: 14 0RF ibuprofen 600 mg tablet 600 mg PO Q6H PRN (Reason: fever or pain) Qty: 30 0RF amoxicillin-pot clavulanate 875-125 mg tablet 1 tab PO BID Qty: 20 0RF Referrals: Jarad Gamino MD [Physician] - 2 weeks Print Language: Kiswahili
[2023-11-18] MEDS: oxyCODONE HCl Immed Release 5 MG TABLET 10 MG PO (00:21)
[2023-11-18 00:55] VITALS: BP 117/63; PULSE 81; RESP 20; TEMP 36.7; O2SAT 98
[2023-11-18 01:06] VITALS: BP 117/63; PULSE 81; RESP 20; TEMP 36.7; O2SAT 98
== END 2023-11-18 01:07 | disposition home or self-care (01) ==
PROVIDERS: Emergency Provider Internal Medicine
DX: S76.811A Strain of other specified muscles, fascia and tendons at thigh level, right thigh, initial encounter (principal); X50.9XXA Other and unspecified overexertion or strenuous movements or postures, initial encounter; Y93.67 Activity, basketball; Y92.310 Basketball court as the place of occurrence of the external cause; Y99.9 Unspecified external cause status
CPT/HCPCS: 73562; 99283; 99284